=== PATIENT | male | born 1960 | race Caucasian/White ===

== ENCOUNTER 2016-08-06 14:01 | Emergency (ER) | payer OTHER ==
[~2016-08-06 14:01] MED LIST: EPINEPHRINE INJ 1 MG/10 ML DISP.SYRIN ONE
[2016-08-06] MEDS ORDERED: EPINEPHRINE INJ 1 MG/10 ML DISP.SYRIN ONE (14:23)
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
== END 2016-08-06 19:18 | disposition expired ==
LOC: ER 14:01 → EDBD 14:01 → ER 19:18
DX: S27.1XXA Traumatic hemothorax, initial encounter (principal); I46.9 Cardiac arrest, cause unspecified; S09.90XA Unspecified injury of head, initial encounter; V24.4XXA Motorcycle driver injured in collision with heavy transport vehicle or bus in traffic accident, initial encounter
CPT/HCPCS: J0171